=== PATIENT | female | born 1955 | race African-American/Black ===

== ENCOUNTER 2018-05-29 23:16 | Emergency (ER) | payer BC ==
[~2018-05-29] VITALS: Ht 165.1 cm; Wt 57.0 kg
[~2018-05-29 23:16] MED LIST: ASPI-1073 PO; CLON0.1T; CLON1PAT11 TD; LOSA25TA12; LOSA25TA12 PO; LOSA50TA20; LOSA50TA20 PO; METO-396 PO; PRAV40TA PO
[2018-05-30] MEDS ORDERED: SODIUM CHLORIDE 0.9% 1,000 ML IV ONE (00:01)
[2018-05-30] MEDS ORDERED: MECLIZINE 25MG TABLET PO ONE (00:15)
[2018-05-30 00:23] LABS: CLARITY URINE CLEAR (CLEAR); COLOR URINE YELLOW (YELLOW); KETONES URINE NEGATIVE (NEGATIVE); LEUKOCYTE ESTERASE URINE 1+ (NEGATIVE); NITRITE URINE NEGATIVE (NEGATIVE); OCCULT BLOOD URINE NEGATIVE (NEGATIVE); PH URINE 6.5 (4.5-8.0); PROTEIN URINE NEGATIVE (NEGATIVE); SPECIFIC GRAVITY URINE 1.012 (1.005-1.030); UROBILINOGEN URINE 0.2 E.U./dL (0.2-1.0)
[2018-05-30 00:49] LABS: BASOPHILS % 0.9 % (0.0-2.0); EOSINOPHILS % 1.5 % (0.0-5.0); HEMOGLOBIN. 12.9 g/dL (12.0-16.0); MEAN CORPUSCULAR HEMOGLOBIN 29.2 pg (28.0-32.0); MEAN CORPUSCULAR VOLUME 85.9 fL (81.0-99.0); MEAN PLATELET VOLUME 7.9 fl (7.4-10.4); MONOCYTES % 7.5 % (2.0-8.0); NEUTROPHILS % 42.1 % (40.0-76.0); PLATELET 230 x1000/uL (130-400); RED BLOOD CELL COUNT 4.42 mill/uL (4.2-5.4); RED CELL DISTRIBUTION WIDTH 13.7 % (11.6-14.6)
[2018-05-30 00:57] LABS: PROTHROMBIN TIME 10.3 sec (9.1-11.1)
[2018-05-30 02:01] LABS: CHLORIDE 109 mEq/L (98-107)
[2018-05-30 02:30] VITALS: BP 126/62
== END 2018-05-30 02:58 | disposition home or self-care (01) ==
LOC: ER 23:16
DX: H81.399 Other peripheral vertigo, unspecified ear (principal); I10 Essential (primary) hypertension; Z79.899 Other long term (current) drug therapy
CPT/HCPCS: 36415; 70551; 80053; 81003; 81025; 83880; 84484; 85025; 85610; 93005; 96360; 99285; J7030; Z7610; J8597

== ENCOUNTER → 2020-11-21 | Outpatient (CLI) | payer BC ==
[~2020-11-21] MED LIST changes: -LOSA25TA12; -LOSA25TA12 PO; +LOSA25TA26; +LOSA25TA26 PO; -LOSA50TA20; -LOSA50TA20 PO; +LOSA50TA41; +LOSA50TA41 PO
== END | disposition home or self-care (01) ==
LOC: LAB 11-20 06:40
PROVIDERS: ATTEND Obstetrics & Gynecology
DX: Z20.822 Contact with and (suspected) exposure to COVID-19 (principal)
CPT/HCPCS: 87426

== ENCOUNTER → 2020-11-22 | Outpatient (CLI) | payer BC | END | disposition home or self-care (01) | LOC: MAMMO 09:13 | PROVIDERS: ATTEND Obstetrics & Gynecology | DX: Z12.31 Encounter for screening mammogram for malignant neoplasm of breast (principal) | CPT/HCPCS: 77067 ==

== ENCOUNTER → 2021-03-19 | Outpatient (CLI) | payer BC | END | disposition home or self-care (01) | LOC: MRI 11:00 | PROVIDERS: ATTEND Podiatrist Foot & Ankle Surgery | DX: S96.922A Laceration of unspecified muscle and tendon at ankle and foot level, left foot, initial encounter (principal); M76.822 Posterior tibial tendinitis, left leg; M19.072 Primary osteoarthritis, left ankle and foot; M25.775 Osteophyte, left foot; M20.12 Hallux valgus (acquired), left foot; M25.572 Pain in left ankle and joints of left foot; X58.XXXA Exposure to other specified factors, initial encounter; Y93.89 Activity, other specified; Y92.89 Other specified places as the place of occurrence of the external cause; Y99.8 Other external cause status | CPT/HCPCS: 73718; 73721 ==

== ENCOUNTER → 2021-08-01 | Outpatient (CLI) | payer BC | END | disposition home or self-care (01) | LOC: MRI 07:36 | PROVIDERS: ATTEND Podiatrist Foot & Ankle Surgery | DX: S92.215A Nondisplaced fracture of cuboid bone of left foot, initial encounter for closed fracture (principal); S92.302A Fracture of unspecified metatarsal bone(s), left foot, initial encounter for closed fracture; X58.XXXA Exposure to other specified factors, initial encounter; Y93.89 Activity, other specified; Y92.89 Other specified places as the place of occurrence of the external cause; Y99.8 Other external cause status; M20.12 Hallux valgus (acquired), left foot; M21.072 Valgus deformity, not elsewhere classified, left ankle; M79.89 Other specified soft tissue disorders | CPT/HCPCS: 73718 ==

== ENCOUNTER 2021-11-06 06:30 | Emergency (ER) | payer BC ==
[~2021-11-06] VITALS: Ht 165.1 cm; Wt 55.0 kg
[2021-11-06 06:41] VITALS: BP 161/88
[2021-11-06] MEDS ORDERED: METOCLOPRAMIDE HCL 10MG TABLET PO ONE (07:15)
[2021-11-06] MEDS ORDERED: ACETAMINOPHEN 325MG TABLET PO ONE (07:15)
[2021-11-06] MEDS ORDERED: TOPUD PO (08:23)
== END 2021-11-06 09:04 | disposition home or self-care (01) ==
LOC: ER 06:30
DX: U07.1 COVID-19 (principal); R51.9 Headache, unspecified; I10 Essential (primary) hypertension; Z79.82 Long term (current) use of aspirin; Z98.890 Other specified postprocedural states
CPT/HCPCS: 87426; 99283; J7042; J8597

== ENCOUNTER → 2022-01-16 | Outpatient (CLI) | payer BC ==
[~2022-01-16] MED LIST changes: +TOPUD PO
== END | disposition home or self-care (01) ==
LOC: RAD 06:56
DX: M81.0 Age-related osteoporosis without current pathological fracture (principal); M47.814 Spondylosis without myelopathy or radiculopathy, thoracic region; F17.200 Nicotine dependence, unspecified, uncomplicated
CPT/HCPCS: 71250; 77080

== ENCOUNTER 2022-03-20 19:52 | Emergency (ER) | payer BC ==
[~2022-03-20] VITALS: Ht 165.1 cm; Wt 54.4 kg
[2022-03-20] MEDS ORDERED: ACETAMINOPHEN 325MG TABLET PO ONE (20:30)
[2022-03-20] MEDS ORDERED: LOSARTAN POTASSIUM 50 MG TABLET PO ONE (20:30)
[2022-03-20] MEDS ORDERED: CLONIDINE 0.1MG TABLET PO ONE (20:30)
[2022-03-20 22:00] VITALS: BP 138/80
== END 2022-03-20 22:00 | disposition home or self-care (01) ==
LOC: ER 19:52
DX: R51.9 Headache, unspecified (principal); I10 Essential (primary) hypertension; Z79.82 Long term (current) use of aspirin; Z87.01 Personal history of pneumonia (recurrent); Z98.890 Other specified postprocedural states
CPT/HCPCS: 99284